=== PATIENT | male | born 1970 | race Caucasian/White ===

== ENCOUNTER 2019-11-04 08:07 | Emergency (ER) | payer BC, SELFPAY ==
--- NOTE | 2019-11-04 08:12 | ED.URI ---
HPI - URI/Sore Throat General Chief Complaint: Upper Respiratory Infection Stated Complaint: chest congestion/cough Time Seen by Provider: 11/04/19 08:12 Source: patient and RN notes reviewed History of Present Illness HPI Narrative: Patient is a 49-year-old male who presents the urgent care with complaints of chest congestion, cough, postnasal drainage since Tuesday. Patient denies of any known fever, chills, nausea, vomiting. Patient denies any known exposure to COVID and states that they have been social distance seen. Patient has used 1 dose of Mucinex at 4 AM this morning but otherwise has not done anything [id number] for his symptoms. Patient thinks he needs a Z-Ronald . Patient was seen here in March and was placed on Flonase and a Medrol Dosepak in which he states symptoms did improve. No other acute complaints. No acute distress noted. Patient read the plan of care. Related Data Allergies Allergy/AdvReac Type Severity Reaction Status Date / Time No Known Allergies Allergy Verified 11/04/19 08:24 Review of Systems Review of Systems: Narrative: CONSTITUTIONAL: Denies fever, chills, or sweats. EYES: Denies visual changes, redness, or discharge. ENT: Reports of rhinorrhea, congestion and postnasal drainage CARDIOVASCULAR: Denies chest pain, palpitations, or edema. RESPIRATORY: Reports a mild cough without dyspnea GASTROINTESTINAL: Denies abdominal pain, nausea, vomiting, or diarrhea. GENITOURINARY: Denies dysuria or hematuria. SKIN: Denies rash or itching. MUSCULOSKELETAL: Denies back pain, joint pain, or myalgia. NEUROLOGIC: Denies headache, numbness, or weakness. All other systems reviewed are negative, except as documented in HPI. PMFSH Comments At the time of my signature, I reviewed and agree with the nursing past medical, surgical, social, and family history. There is no relevant family history pertinent to the patient complaint. Exam Narrative: Exam Narrative: GENERAL: This is a well-nourished, well-developed patient, in no apparent distress. HEAD: normocephalic, atraumatic. Mild frontal sinus pressure EYES: PERRL. Sclera clear/white. Vision is grossly intact. EARS: External ears normal, auditory canals clear and without drainage, TMs normal without perforation. Hearing grossly intact. NOSE: External nose normal with no obvious nasal discharge, nares without redness, clear rhinorrhea. THROAT: Mucous membranes moist, posterior pharynx clear. Mild postnasal drainage NECK: Neck supple CARDIOVASCULAR: Regular rate and rhythm without murmurs, gallops, or rubs. RESPIRATORY: Clear to auscultation. Breath sounds equal bilaterally. No wheezes, rales, or rhonchi. SKIN: warm, intact with no suspicious lesions or rash, good texture and turgor. NEURO: awake, alert, and oriented to person, place and time. There were no obvious focal neurologic abnormalities. EXTREMITIES: No clubbing, cyanosis, or edema. Course Vital Signs Vital signs: Vital Signs Temperature 98.9 F 11/04/19 08:13 Pulse Rate 91 11/04/19 08:13 Respiratory Rate 16 11/04/19 08:13 Blood Pressure 129/84 11/04/19 08:13 Pulse Oximetry 98 11/04/19 08:13 Temperature 98.9 F 11/04/19 08:13 Pulse Rate 91 11/04/19 08:13 Respiratory Rate 16 11/04/19 08:13 Blood Pressure 129/84 11/04/19 08:13 Pulse Oximetry 98 11/04/19 08:13 Reviewed MDM - URI/Sore Throat MDM Narrative Medical decision making narrative: Advised the patient to complete steroid regimen as prescribed. Use inhaler as needed. Make sure to eat and drink with medication. Use Flonase and Claritin as directed daily for at least the next 2 weeks or as needed. May continue Mucinex as needed. Increase fluids and rest. Use humidifier at night and do not sleep with the windows open. If you develop any increase in symptoms associated with shortness of breath or fever?go to the emergency room or make sure you have COVID ruled out. Follow-up with your PCP within 2 to 5
[2019-11-04 08:13] VITALS: BP 129/84; PULSE 91; RESP 16; TEMP 37.2; O2SAT 98
== END 2019-11-04 08:36 | disposition home or self-care (01) ==
PROVIDERS: Emergency Provider Nurse Practitioner Family; PCP Family Medicine
DX: J32.9 Chronic sinusitis, unspecified (principal)
CPT/HCPCS: 99213; G0463